=== PATIENT | female | born 1995 | race Caucasian/White ===

== ENCOUNTER 2022-10-22 09:43 | Inpatient (IN) ==
[2022-10-22] MEDS ORDERED: LIDOCAINE 1% LOCAL 20 ML VIAL INFIL PRN (10:53)
[2022-10-22] MEDS ORDERED: LACTATED RINGER'S 1,000 ML IV PRN (10:53)
[2022-10-22] MEDS ORDERED: fentaNYL citrate 100 MCG/2 ML VIAL ONE (11:11)
[2022-10-22] MEDS ORDERED: ePHEDrine sulfate 50 MG/ML AMP ONE (11:11)
[2022-10-22] MEDS ORDERED: LIDOCAINE 2%/EPINEPHRINE 1:200,000 20 ML SDV ONE (11:12)
[2022-10-22] MEDS ORDERED: BUPIVACAINE 0.25% 30 ML VIAL ONE (11:12)
[2022-10-22] MEDS ORDERED: SODIUM CHLORIDE 0.9% INJ 10 ML VIAL ONE (11:12)
[2022-10-22] MEDS ORDERED: fentaNYL 2MCG/ML ROPIVACAINE 1.25MG/ML 100 ML BAG EPI ONE (11:13)
[2022-10-22 11:14] LABS: Hematocrit (blood only) 36.8 % (37.0-47.0); Hemoglobin 12.6 g/dl (12.0-16.0); Mean Corpuscular Hemoglobin 30.1 pg (25.0-34.0); Mean Corpuscular Hgb Conc 34.2 g/dL (32.0-36.0); Mean Corpuscular Volume 87.8 fL (80.0-100.0); Mean Platelet Volume 11.1 fL (9.4-12.4); Platelet Count 229 K/uL (130-400); RDW Coefficient of Variation 13.7 % (11.5-14.5); RDW Standard Deviation 43.5 fL (36.4-46.3); Red Blood Count 4.19 M/uL (4.20-5.40); White Blood Count 16.14 K/ul (4.8-10.8)
[2022-10-22] MEDS ORDERED: fentaNYL 2MCG/ML ROPIVACAINE 1.25MG/ML 100 ML BAG EPI PRN (11:22)
[2022-10-22] MEDS ORDERED: ONDANSETRON INJ 2 MG/ML 2 ML VIAL IV PRN (11:22)
[2022-10-22] MEDS ORDERED: NALBUPHINE HCL INJ 10 MG/ML AMP IV PRN (11:22)
[2022-10-22] MEDS ORDERED: NALOXONE HCL 0.4 MG/1 ML VIAL/CARP IV PRN (11:22)
[2022-10-22] MEDS ORDERED: NALOXONE HCL 1 MG in SODIUM CHLORIDE 0.9% 1000ML 1,000 ML IV PRN (11:22)
[2022-10-22] MEDS ORDERED: ePHEDrine sulfate 50 MG/ML AMP IV PRN (11:22)
[2022-10-22] MEDS ORDERED: diphenhydrAMINE 50 MG/ML VIAL IV PRN (11:22)
--- NOTE | 2022-10-22 11:24 | Anesthesiology Consultation ---
Date of Service October 22, 2022 Assessment & Plan (1) Encounter for pre-operative examination: Chart Review Chart Review: Patient NOT seen in Pre Admission Testing and Acceptable Risk for Labor Epidural Consults Requested none History Height/Weight Height: 5 ft 10 in Weight: 100.018 kg Allergies Allergy/AdvReac Type Severity Reaction Status Date / Time No Known Allergies Allergy Verified 10/21/22 10:46 Medications Home Medications Medication Instructions Recorded Confirmed Last Taken ascorbic acid (vitamin C) PO 04/05/22 10/21/22 10/21/22 prenat.vits,wesley,nmq-lgpt-fikum 1 tab PO DAILY 04/05/22 10/22/22 10/21/22 vitamin B complex PO 04/05/22 10/21/22 10/20/22 cholecalciferol (vitamin D3) 125 10/22/22 10/21/22 mcg (5,000 unit) tablet (Vitamin D3) Active Medications Generic Name Dose Route Start Last Admin Trade Name Freq PRN Reason Stop Dose Admin Lactated Ringer's 1,000 mls @ 125 mls/hr 10/22/22 10:53 10/22/22 11:00 Lr IV 10/24/22 10:52 999 mls/hr .Q8H PRN Administration L&D Protocol Protocol Exercise / Class Metabolic Activity II 4-5 Yardwork/Stairs/Walk up hill Past Family History Family History Mother Colorectal cancer Social History Smoking Status: Never smoker Hx Alcohol Use: No Hx Substance Use: No Physical Exam Vital Signs Last Vital Signs Temp 36.7 C 10/22/22 09:57 Pulse 69 10/22/22 11:42 Resp 16 10/22/22 09:57 BP 154/75 H 10/22/22 10:03 Pulse Ox 98 10/22/22 11:42 Testing Laboratory Results 10/22/22 11:03
--- NOTE | 2022-10-22 11:39 | History & Physical Report ---
Date of Service October 22, 2022 Assessment & Plan (1) Supervision of normal intrauterine in primigravida: Plan: IUP at 38 weeks with SPROM for clear fluid and spontaneous onset of contractions epidural analgesia when requested anticipate vaginal will need rubella vaccine prior to discharge. Admission and Anticipated Discharge Date Admission Date: October 22, 2022 History of Present Illness Primary Care Provider: [facility] Patient is a 27 yo female EDC 11/05/22 who presents at 38 weeks with SPROM for clear fluid at 730 this morning. regular contractions ensued shortly after this. and are now every 4 minutes. has been uncomplicated. GBS- neg ative Allergies Allergy/AdvReac Type Severity Reaction Status Date / Time No Known Allergies Allergy Verified 10/21/22 10:46 Home Medications Medication Instructions Recorded Confirmed Type ascorbic acid (vitamin C) PO 04/05/22 10/21/22 History prenat.vits,wesley,lwa-opix-knuwp 1 tab PO DAILY 04/05/22 10/22/22 History vitamin B complex PO 04/05/22 10/21/22 History cholecalciferol (vitamin D3) 125 10/22/22 History mcg (5,000 unit) tablet (Vitamin D3) Patient History Family History Mother Colorectal cancer Social History Smoking Status: Never smoker Hx Alcohol Use: No Hx Substance Use: No Preferred Language: Ghanaian Communication Ability: Effective Dairy [employer] Manager Required: No Beliefs That Will Affect Care: None marital status: marital status details: Magdiel (25) [phone] Current Living Situation: Spouse Current Living Situation Comment: lives with spouse, no pets current occupational status: employed current occupation: Multimedia Editor. Feels Safe at Home: Yes Safety Concerns: Feels Safe At This Time Assistive Devices: None Review of Systems All systems reviewed & are unremarkable except as noted in HPI & below Physical Exam Constitutional: WD/WN, vitals as above Psychiatric: A+Ox3, euthymic affect Genitourinary: OB Exam Abdomen: + vertex, + estimated weight (6-7 pounds) and + regular contractions Manual OB Exam: + cervical dilation 4 cm, + cervical effacement 100%, + station -1 and + amniotic fluid clear (grossly ruptured) OB Exam Monitor Tracing: + external FHT monitor used, + external uterine monitor used, + category I and + normal FHT variability Results & Data ([facility]) Vital Signs (Past 12 Hours) Vital Signs Temp Pulse Resp BP Pulse Ox 10/22/22 11:32 85 98 10/22/22 11:28 66 94 10/22/22 11:27 69 95 10/22/22 10:03 63 154/75 H 10/22/22 09:57 98.1 F 63 16 154/75 H Code Status & VTE Plan VTE Prophylaxis Plan VTE Prophylaxis will be ordered: No Coding Level of Care Code None Diagnoses Supervision of normal intrauterine in primigravida Z34.00
--- NOTE | 2022-10-22 14:50 | Labor Progress Brief Note ---
Date of Service October 22, 2022 Subjective Comfortable with epidural. FHT Cat 1 [place] Q 2 SVE 10/100/0 Not feeling pressure or urge to push. Will reposition, use Peanut ball, start pushing within the next hour. Assessment & Plan Admission and Anticipated Discharge Date Admission Date: October 22, 2022 Results & Data ([facility]) Vital Signs (Past 12 Hours) Vital Signs Temp Pulse Resp BP Pulse Ox 10/22/22 14:42 98 H 97 10/22/22 14:37 105 H 100 10/22/22 14:32 107 H 100 10/22/22 14:27 75 99 10/22/22 14:24 99 H 120/70 10/22/22 14:22 76 98 10/22/22 14:17 83 98 10/22/22 14:00 18 10/22/22 14:00 18 10/22/22 14:12 77 99 10/22/22 14:10 75 117/64 10/22/22 14:07 75 99 10/22/22 14:02 90 99 10/22/22 13:57 74 99 10/22/22 13:54 76 119/67 10/22/22 13:52 72 99 10/22/22 13:47 70 99 10/22/22 13:42 72 99 10/22/22 13:39 75 117/66 10/22/22 13:37 71 99 10/22/22 13:32 75 99 10/22/22 13:30 18 10/22/22 13:30 18 10/22/22 13:00 16 10/22/22 13:00 16 10/22/22 12:45 18 10/22/22 12:45 18 10/22/22 13:27 77 99 10/22/22 13:24 88 135/69 10/22/22 13:22 91 H 98 10/22/22 13:17 90 99 10/22/22 13:12 74 99 10/22/22 13:09 76 129/75 10/22/22 13:07 82 100 10/22/22 13:02 81 100 10/22/22 12:57 63 99 10/22/22 12:54 78 121/68 10/22/22 12:52 74 100 10/22/22 12:47 71 99 10/22/22 12:42 68 100 10/22/22 12:40 70 126/70 10/22/22 12:37 100 H 100 10/22/22 12:30 18 10/22/22 12:30 18 10/22/22 12:32 73 100 10/22/22 12:27 76 100 10/22/22 12:26 36.4 C L 10/22/22 12:22 80 100 10/22/22 12:21 76 117/71 10/22/22 12:17 69 99 10/22/22 12:15 69 116/63 10/22/22 12:12 80 99 10/22/22 12:09 68 122/66 10/22/22 12:07 78 128/72 98 10/22/22 12:05 76 126/70 10/22/22 12:04 90 126/70 10/22/22 12:02 78 99 10/22/22 12:01 83 126/68 10/22/22 11:59 91 H 134/66 10/22/22 11:57 82 97 10/22/22 11:58 75 136/63 10/22/22 11:56 94 H 138/80 10/22/22 11:54 71 119/59 L 10/22/22 11:52 75 97 10/22/22 11:47 76 97 10/22/22 11:46 72 134/68 10/22/22 11:42 69 98 10/22/22 11:37 92 H 99 10/22/22 11:32 85 98 10/22/22 11:28 66 94 10/22/22 11:27 69 95 10/22/22 10:03 63 154/75 H 10/22/22 09:57 36.7 C 63 16 154/75 H Coding Level of Care Code None Diagnoses
[2022-10-22] MEDS: OXYTOCIN 30 UNITS/500 ML BAG IV PRN ×2 (17:38→18:23)
[2022-10-22] MEDS ORDERED: HYDROCORTISONE ACETATE 25 MG SUPP PR PRN (18:15)
[2022-10-22] MEDS ORDERED: DIPHTHERIA/TETANUS/PERTUSSIS 0.5mL SYR/VIAL (Age 7+yrs) IM ONE (18:15)
[2022-10-22] MEDS ORDERED: bisacodyL 10 MG SUPP PR PRN (18:15)
[2022-10-22] MEDS ORDERED: OXYTOCIN 30 UNITS/500 ML BAG IV PRN (18:15)
[2022-10-22] MEDS ORDERED: oxyCODONE/ACETAMINOPHEN 5mg/325mg TAB PO PRN (18:15)
[2022-10-22] MEDS ORDERED: BENZOCAINE 20% AER SPR 82.5 GM CAN EXT PRN (18:15)
--- NOTE | 2022-10-22 18:50 | Delivery Summary ---
Vaginal Delivery Summary Date of Service October 22, 2022 Vaginal Delivery Summary and 2nd Degree LAC Vaginal Delivery Summary: Pre-delivery diagnoses: 27yo @ 38 0/7, spontaneous labor Post-delivery diagnoses: same Procedure: spontaneous vaginal delivery, repair of right vaginal sulcal tear and 2nd degree perineal laceration Surgeon: Sandra Moreno DO Complications: none Findings: Viable male . Apgars and weight pending, please see nursery records Estimated blood loss: 400ml Description of delivery: The patient progressed to complete with epidural anesthesia. She then began to push. She spontaneously vaginally delivered a viable from the cephalic presentation. The head delivered in ROP position. The anterior shoulder delivered, followed by the posterior shoulder, followed by the body. Nuchal cord x 1, delivered through. The baby was placed on mother's abdomen and a spontaneous cry was heard. Delayed cord clamping was employed, and the cord was doubly clamped and cut. Cord blood was obtained. The placenta was delivered spontaneously intact with a 3-vessel cord. The uterus and vagina were swept of clots and debris. IV pitocin was given. The uterus became firm. The cervix, vagina, and perineum were inspected and a right vaginal sulcal tear and 2nd degree perineal laceration were noted - repaired with 3-0 Vicryl. Excellent hemostasis was observed. The mother and baby are recovering in stable and good condition in the room. Sponge, needle and instrument counts were correct x 2. Sandra Moreno DO [facility] Vaginal Delivery Charge Vaginal Delivery Codes: 69015 global code for the antepartum, delivery, and post- Delivery Type Details: and 2nd Degree LAC
[2022-10-22] MEDS: ACETAMINOPHEN 325 MG TAB PO PRN (19:35)
--- NOTE | 2022-10-22 20:21 | Anesthesia Procedure Note ---
Date of Service October 22, 2022 Anesthesia Post Epidural Note Vital Signs Vital Signs: Temp Pulse Resp BP Pulse Ox 36.9 C 103 H 18 132/71 91 10/22/22 19:00 10/22/22 20:08 10/22/22 19:30 10/22/22 20:08 10/22/22 18:12 Pain Intensity Bilateral Abdomen: Pain Intensity: 2 Bilateral Episiotomy/Laceration: Pain Intensity: 2 Notes Mental Status: alert / awake / arousable Nausea / Vomiting: adequately controlled Pain: adequately controlled Airway Patency, RR, SpO2: stable & adequate BP & HR: stable & adequate Hydration State: stable & adequate Neuraxial Anesthesia: was administered and sensory block is resolving Anesthetic Complications: no major complications apparent Epidural: Removed without complications and With tip intact
[2022-10-22] MEDS ORDERED: MEASLES, MUMPS & RUBELLA VIRUS VIAL SQ ONE (20:53)
[2022-10-22] MEDS: DOCUSATE SODIUM 100 MG CAP PO SCH (21:32)
[2022-10-22] MEDS: IBUPROFEN 600 MG TAB PO PRN (21:46)
[2022-10-23] MEDS: IBUPROFEN 600 MG TAB PO PRN ×4 (02:46→21:49)
[2022-10-23 06:41] LABS: Hematocrit (blood only) 30.5 % (37.0-47.0); Hemoglobin 10.2 g/dl (12.0-16.0)
--- NOTE | 2022-10-23 07:55 | Obstetrical Progress Note ---
Date of Service October 23, 2022 Assessment & Plan (1) Supervision of normal intrauterine in primigravida: PPD#1 doing well. No concerns. Anticipate DC home tomorrow. Routine care. Continue . Subjective Ambulation: ambulating normally Voiding: no voiding problems Diet Tolerance:: regular diet Lochia:: Moderate Review of Systems All systems reviewed & are unremarkable except as noted in HPI & below Physical Exam Constitutional WD/WN, vitals as above no acute distress Respiratory normal respiratory effort Cardiovascular Rate/Rhythm: regular rate and regular rhythm Gastrointestinal (Abdomen) Inspection/Auscultation: abdomen normal to inspection; abdomen not distended Percussion/Palpation: abdomen soft Genitourinary OB Exam Abdomen: + fundal height Fundus: + firm; not tender Results & Data ([facility]) Vital Signs (Past 12 Hours) Vital Signs Temp Pulse Pulse Resp BP BP Pulse Ox 10/23/22 05:00 126/72 10/23/22 02:45 36.7 C 71 18 143/93 H 97 10/22/22 23:45 36.7 C 72 18 126/84 97 10/22/22 20:30 36.8 C 87 18 118/76 98 10/22/22 20:00 20 10/22/22 20:08 103 H 132/71 O2 Del Method 10/23/22 05:00 10/23/22 02:45 Room Air 10/22/22 23:45 Room Air 10/22/22 20:30 Room Air 10/22/22 20:00 10/22/22 20:08
[2022-10-23] MEDS: PRENATAL VITAMIN 1 TAB PO SCH (09:36)
[2022-10-23] MEDS: DOCUSATE SODIUM 100 MG CAP PO SCH ×2 (09:36→21:50)
[2022-10-23] MEDS ORDERED: bisacodyL 5 MG TABEC PO SCH (20:00)
[2022-10-24] MEDS: IBUPROFEN 600 MG TAB PO PRN (06:44)
[2022-10-24] MEDS: ACETAMINOPHEN 325 MG TAB PO PRN (08:26)
[2022-10-24] MEDS: DOCUSATE SODIUM 100 MG CAP PO SCH (08:26)
[2022-10-24] MEDS: PRENATAL VITAMIN 1 TAB PO SCH (08:26)
--- NOTE | 2022-10-24 10:33 | Obstetrical Progress Note ---
Date of Service October 24, 2022 Assessment & Plan (1) Encounter for care and examination after delivery: satisfactory progress ready for discharge today follow up in 6 weeks Subjective Ambulation: ambulating normally Voiding: no voiding problems Passing Gas:: Yes Diet Tolerance:: regular diet Lochia:: Moderate Feeding Type:: breast feeding Review of Systems All systems reviewed & are unremarkable except as noted in HPI & below Physical Exam Constitutional WD/WN, vitals as above Psychiatric A+Ox3, euthymic affect Genitourinary OB Exam Abdomen: + fundal height Fundus: + firm and + relation to umbilicus (1 below) Results & Data ([facility]) Vital Signs (Past 12 Hours) Vital Signs Temp Pulse Resp BP Pulse Ox O2 Del Method 10/24/22 09:49 97.5 F L 77 18 135/77 98 10/24/22 08:00 97.5 F L 77 18 135/77 98 Room Air 10/24/22 00:10 97.7 F 75 18 133/83 97 Room Air
== END 2022-10-24 14:20 | disposition home or self-care (01) | DRG 807 ==
LOC: OPB 09:43 → 4S1 09:47 → 4E2 20:50